=== PATIENT | female | born 1950 | race Caucasian/White ===

== ENCOUNTER 2022-01-03 06:18 | Day surgery (SDC) | payer MEDICARE, BC ==
[~2022-01-03 06:18] MED LIST: Lactated Ringers 1,000 ML IV SCH
[2022-01-03] MEDS ORDERED: Propofol 200 MG/20 ML SDV ONE ×2 (07:26→08:29)
[2022-01-03] MEDS ORDERED: fentaNYL 100 MCG/2 ML SDV ONE (07:26)
[2022-01-03] MEDS ORDERED: Lactated Ringers 1,000 ML IV SCH (09:00)
== END 2022-01-03 09:28 | disposition home or self-care (01) ==
LOC: MW.SDS 06:18
PROVIDERS: ATTEND Surgery
DX: K62.89 Other specified diseases of anus and rectum (principal); E78.00 Pure hypercholesterolemia, unspecified; E03.9 Hypothyroidism, unspecified; Q87.19 Other congenital malformation syndromes predominantly associated with short stature; H54.7 Unspecified visual loss; Z79.899 Other long term (current) drug therapy; Z79.890 Hormone replacement therapy; Z90.49 Acquired absence of other specified parts of digestive tract; Z98.890 Other specified postprocedural states; Z80.3 Family history of malignant neoplasm of breast; Z80.0 Family history of malignant neoplasm of digestive organs; Z72.89 Other problems related to lifestyle
CPT/HCPCS: 45378; J2704; J3010; J7120